=== PATIENT | female | born 1995 | race Caucasian/White ===

== ENCOUNTER 2016-11-21 21:18 | Emergency (ER) | payer OTHER ==
[~2016-11-21 21:18] MED LIST: PRENCAP17 PO
[2017-02-18] MEDS ORDERED: PERM5CRE TOPICAL (15:02)
== END 2016-11-21 21:41 | disposition left against medical advice (07) ==
LOC: PHED 21:18
DX: O26.893 Other specified pregnancy related conditions, third trimester (principal); R06.02 Shortness of breath; Z53.21 Procedure and treatment not carried out due to patient leaving prior to being seen by health care provider; Z3A.28 28 weeks gestation of pregnancy
CPT/HCPCS: 99281

== ENCOUNTER 2016-11-21 22:03 | Emergency (ER) | payer OTHER ==
[~2016-11-21] VITALS: Ht 167.6 cm; Wt 69.4 kg
--- NOTE | 2016-11-21 23:10 | PD ---
HPI Travel History International Travel<30 Days: No Contact w/Intl Traveler<30Days: No Known Affected Area: No History of Present Illness HPI This patient is a 21-year-old 1. 0 EDC is February 11, 2017 presently at 28 weeks and 2 days she presents with the chief complaint of the onset of a vaginal discharge which was then denies any odors or itching she did have to put on a pad for the discharge but it wasn't so it was just smeared with a dark yellowish discharge and no bleeding no rupture of membranes associated with lower abdominal pain described as crampy and intermittent also low back pain No fever or chills she feels hot mild nausea no vomiting positive constipation she has increased frequency urgency pressure with urination no blood in the urine and no pain with urination again denies vaginal bleeding or rupture of membranes and the baby is active [facility] course is significant for an abnormal Pap smear high-grade ANNI and HPV Positive Chlamydia which was treated partner also treated she said that she had a test for cure which was negative colposcopy also done in September had a low- lying placenta which has since been resolved also the baby has bilateral renal pelvic dilatation and the test for cure was negative baseline blood pressure of 100/59 History Past Medical History Narrative Medical No known drug allergies history of psoriasis Obstetric History Obstetric History First Past Surgical History Narrative Surgical Tonsils as a child Family History Narrative Family History Hypertension cancer Social History Alcohol Use: No Tobacco Use: Yes (smokes less than a pack of cigarettes per day) Substance Abuse: No Allergies-Medications (Allergen,Severity, Reaction): Coded Allergies: No Known Allergies (Verified , 11/19/16) Home Meds Active Scripts Without A W/ Fe Carbo (Prenate Mini 29-0.6-0.4-350 mg)1 Cap Cap1 Tab PO DAILY #30 BOTTLE Ref 11 Prov:Heaven Marte 08/06/16 Review of Systems General / Constitutional: No: Fever, Weight Gain, Weight Loss, Chills, Other Eyes: No: Diploplia, Blurred Vision, Visual changes, Pain, Photophobia, Other HENT: No: Headaches, Vertigo, Dental Difficulties, Lightheadedness, Other Cardiovascular: No: Irregular Rhythm, Chest Pain or Discomfort, Palpitations, Tachycardia, Syncope, Varicosities, Edema, Cyanosis, Other Respiratory: No: Cough, Short of Breath, Wheezing, Other Gastrointestinal: Nausea, Abdominal Pain, Constipation Genitourinary: Discharge Musculoskeletal: No: Limited ROM, Weakness, Cramping, Edema, Pain, Other Skin: No Rash, No Itching, No Dryness, No Lumps, No Change in Pigmentation, No Change in Nails, No Alopecia, No Lesions, No Breast Lumps, No Breast Tenderness , No Breast Swelling, No Other Neurologic: No: Weakness, Dizziness, Syncope, Focal Abnormalities, Coordination Problem, Headache, Slurred Speech, Seizures, Other Physical Exam Narrative GENERAL: Well-nourished, well-developed patient. Patient is alert oriented 3 and cooperative in no acute distress SKIN: Warm and dry. HEAD: Normocephalic and atraumatic. EYES: No scleral icterus. No injection or drainage. Conjunctiva are pink sclerae are clear ENT: No nasal drainage noted. Mucous membranes pink. Airway patent. Mucous membranes are moist NECK: Supple, trachea midline. No JVD. CARDIOVASCULAR: Regular rate and rhythm without murmurs, gallops, or rubs. RESPIRATORY: Breath sounds equal bilaterally. No accessory muscle use. ABDOMEN/GI: Abdomen is gravid consistent with stated gestational age no palpable contractions no epigastric or right upper quadrant tenderness no rebound tenderness she feels pressure when pushing on the fundus she feels it in the suprapubic area no point tenderness Gravid to [-] weeks size 28 weeks Fundal Height: [-] GENITOURINARY: Speculum was done prior to the bimanual she has a yellowish green copious frothy discharge in the vagina consistent with either Trichomonas or bacterial vaginosis the cervix is grossly closed no blood in the vault no fluid none on Valsalva External Genitalia: intact and normal in appearance BUS glands: [-] Cervix: [-] Posterior firm measures approximately 3.4 cm on ultrasound Dilatation: [-] Closed Effacement: [-] 0 Station: [-] High Presentation: [-] Breech Membranes: [intact FHT's: Category: [-] 1 Baseline: [-] 140 Reactive: [-]+ Variability: [-] Moderate Decels: [-] 0 EXTREMITIES: No cyanosis or edema. 2+ reflexes BACK: Nontender without obvious deformity. No CVA tenderness. NEUROLOGICAL: Awake and alert. Motor and sensory grossly within normal limits. Five out of 5 muscle strength in all muscle groups. Normal speech. Data Data Vital Signs Reviewed: Yes (temperature is 98.0 blood pressures 115/69 her pulse is 89) [facility] Medical Record Reviewed: Yes Interpretation(s) 21-year-old 1 para 0 at 28 weeks and 2 days Not in labor Lower abdominal pain rule out UTI Vaginal discharge rule out vaginitis Rule out GC Chlamydia reoccurrence Breech on ultrasound Smoker Category 1 tracing Narrative Course / MDM Bedside ultrasound is done breech presentation the BPD is 7.35 equaling 29 weeks and 3 days Placenta is anterior grade 2 no previa no abruption no funneling at the internal os Largest pocket is 5.92 x 5.51 total amniotic fluid index is 19.37 Positive flexion positive tone Positive sustained breathing Baseline heart rate is about 140 Cervical length is 3.35 Femur length is 4.93 equaling 30 weeks and 1 day Essentially a 10 out of 10 biophysical profile Urinalysis culture is indicated, wet prep is consistent with Trichomonas, GC chlamydia are pending, As the patient continues to have discomfort we'll start an IV normal saline she has no known drug allergies we'll treat with Rocephin 1 g IV.and will treat the trichomonas with the 2 gram single dose Plan External monitoring By mouth fluid hydration Urinalysis to rule out UTI Wet prep to evaluate for yeast Trichomonas or BV GC Chlamydia on the urinalysis PCR to rule out recurrence of the Chlamydia Reevaluation after results Diagnosis Diagnosis: Primary Impression: 28 weeks gestation of Additional Impressions: Urinary tract infection Trichomonas vaginitis Disposition: DISCHARGE HOME Condition: Stable Shantelle Erwin MD Nov 21, 2016 23:10
[2016-11-21 23:15] LABS: BACTERIA, URINE RARE /hpf; BLOOD, URINE NEG (NEG); COMMENT (UR) CULTURE INDICATED; CULTURE IF INDICATED CULTURE INDICATED; GLUCOSE,URINE NEG (NEG); KETONE, URINE NEG (NEG); NITRITE,URINE NEG (NEG); PH, URINE 7.5 (5.0-8.5); SQUAMOUS EPITHELIAL CELL URINE 1 /hpf (0-5); URINE COLOR LIGHT-YELLOW (YELLW/STRAW)
[2016-11-21 23:39] LABS: AMPHETAMINE, URINE NEG (NEG); BARBITURATES, URINE NEG (NEG); COCAINE, URINE NEG (NEG)
[2016-11-21] MEDS ORDERED: SODIUM CHLOR 0.9% 1000 ML INJ 1,000 ML IV SCH (23:48)
[2016-11-22] MEDS ORDERED: metroNIDAZOLE 500 MG TAB PO ONE
[2016-11-22] MEDS ORDERED: cefTRIAXone INJ 1,000 MG in SODIUM CHLORIDE 0.9% INJ 100 ML IV ONE (01:00)
[2016-11-22 04:33] LABS: CHLAMYDIA PCR NOT DETECTED (NOT DETECT); NEISSERIA PCR NOT DETECTED (NOT DETECT)
[2016-11-27 13:37] LABS: PHENCYCLIDINE URINE NEG (NEG)
[2016-11-27 13:38] LABS: ECSTASY (MDMA) UR NEG (NEG); HEROIN (6-ACETYLMORPHINE) UR NEG (NEG); K2 SPICE UR NEG (NEG); OBMETHADONE UR NEG (NEG)
[2016-11-27 13:39] LABS: BATH SALTS (MDPV) UR NEG (NEG); OXYCODONE (PERCODAN) NEG (NEG)
[2017-02-18] MEDS ORDERED: PERM5CRE TOPICAL (15:02)
== END 2016-11-22 01:17 | disposition home or self-care (01) ==
LOC: HOBED 22:03
DX: O23.43 Unspecified infection of urinary tract in pregnancy, third trimester (principal); O26.893 Other specified pregnancy related conditions, third trimester; N89.8 Other specified noninflammatory disorders of vagina; R11.0 Nausea; M54.5 Low back pain; K59.00 Constipation, unspecified; F17.200 Nicotine dependence, unspecified, uncomplicated; Z3A.28 28 weeks gestation of pregnancy
CPT/HCPCS: 76815; 80307; 81001; 87086; 87210; 87491; 87591; 96365; 99284; G0481; J0696; J7030

== ENCOUNTER 2017-01-28 02:11 | Emergency (ER) | payer OTHER ==
--- NOTE | 2017-01-28 02:44 | PD ---
HPI Chief Complaint contractions, back pain Date Seen: January 28, 2017 Time Seen: 02:30 Travel History International Travel<30 Days: No Contact w/Intl Traveler<30Days: No Known Affected Area: No History of Present Illness HPI Pt is a 21 y/o G1 with IUP at 38.0 wks who presents with c/o contractions. felt some earlier tonight, then woke up around 1:30 with painful contractions. PT reports feeling contractions in lower back. denies vb. denies LOF. +FM Para: 0 : 1 History Past Medical History Narrative Medical psoriasis Past Surgical History Narrative Surgical tonsillectomy Social History Alcohol Use: No Tobacco Use: Yes (1 cigarette/day) Substance Abuse: No Allergies-Medications (Allergen,Severity, Reaction): Coded Allergies: No Known Allergies (Verified , 01/27/17) Home Meds Active Scripts Without A W/ Fe Carbo (Prenate Mini 29-0.6-0.4-350 mg)1 Cap Cap1 Tab PO DAILY #30 BOTTLE Ref 11 Prov:Heaven Marte 08/06/16 Review of Systems General / Constitutional: No: Fever, Weight Gain, Weight Loss, Chills, Other Eyes: No: Diploplia, Blurred Vision, Visual changes, Pain, Photophobia, Other HENT: No: Headaches, Vertigo, Dental Difficulties, Lightheadedness, Other Cardiovascular: No: Irregular Rhythm, Chest Pain or Discomfort, Palpitations, Tachycardia, Syncope, Varicosities, Edema, Cyanosis, Other Respiratory: No: Cough, Short of Breath, Wheezing, Other Gastrointestinal: Abdominal Pain, No: Nausea, Vomiting, Diarrhea, Hematemesis , Hematochezia, Constipation, Changes in Bowel Habits, Indigestion, Loss of Appetite, Other Genitourinary: Pelvic Pain Musculoskeletal: No: Limited ROM, Weakness, Cramping, Edema, Pain, Other Skin: No Rash, No Itching, No Dryness, No Lumps, No Change in Pigmentation, No Change in Nails, No Alopecia, No Lesions, No Breast Lumps, No Breast Tenderness , No Breast Swelling, No Other Neurologic: No: Weakness, Dizziness, Syncope, Focal Abnormalities, Coordination Problem, Headache, Slurred Speech, Seizures, Other Psychiatric: No: Anxiety, Depression, Suicidal Ideations, Disorder of Thought, Mood Disorder, Substance Abuse, Homicidal Ideation, Other Endocrine: No: Heat Intolerance, Cold Intolerance, Polydipsia, Polyuria, Other Hematologic/Lymphatic: No Easy Bruising, No Lymph Node Enlargement, No Other Physical Exam 117/63, 86, 18, 98.5 Narrative GENERAL: Well-nourished, well-developed patient. SKIN: Warm and dry. HEAD: Normocephalic and atraumatic. EYES: No scleral icterus. No injection or drainage. ENT: No nasal drainage noted. Mucous membranes pink. Airway patent. NECK: Supple, trachea midline. No JVD. CARDIOVASCULAR: Regular rate and rhythm without murmurs, gallops, or rubs. RESPIRATORY: Breath sounds equal bilaterally. No accessory muscle use. BREASTS: Bilateral exam showed no masses , no retractions, no nipple discharge. ABDOMEN/GI: Abdomen soft, non-tender, bowel sounds present, no rebound, no guarding Gravid to GENITOURINARY: External Genitalia: intact and normal in appearance cervix by rn exam , [facility] Membranes: intact Uterine Contractions: not tracing well FHT's: Category: [1 Baseline: [150s] Reactive: [yes] Variability: [mod-] Decels: [no] EXTREMITIES: No cyanosis or edema. BACK: Nontender without obvious deformity. No CVA tenderness. NEUROLOGICAL: Awake and alert. Motor and sensory grossly within normal limits. Five out of 5 muscle strength in all muscle groups. Normal speech. Data Data Vital Signs Reviewed: Yes MDM Medical Record Reviewed: Yes Narrative Course / MDM 21 y/o G1 with IUP at 38 wks with c/o contractions, for labor check --recheck cervix in 1-2 hours No cervical change. pt requests medication for rest. medicated with 10 mg ambien. return to [facility] for worsening symptoms. Diagnosis Diagnosis: Primary Impression: 38 weeks gestation of Additional Impression: Irregular uterine contractions Disposition: DISCHARGE HOME Condition: Stable Wendi Pulido MD January 28, 2017 02:44
[2017-01-28 03:28] VITALS: RESP 18
[2017-01-28] MEDS ORDERED: ZOLPIDEM TARTRATE 10 MG TAB PO ONE (04:15)
[2017-02-18] MEDS ORDERED: PERM5CRE TOPICAL (15:02)
== END 2017-01-28 03:57 | disposition home or self-care (01) ==
LOC: HOBED 02:11
DX: O47.1 False labor at or after 37 completed weeks of gestation (principal); Z3A.38 38 weeks gestation of pregnancy
CPT/HCPCS: 99284

== ENCOUNTER 2017-02-03 13:48 | Emergency (ER) | payer OTHER ==
--- NOTE | 2017-02-03 15:04 | PD ---
HPI Chief Complaint Contractions Date Seen: February 03, 2017 Time Seen: 14:30 Travel History International Travel<30 Days: No Contact w/Intl Traveler<30Days: No Known Affected Area: No History of Present Illness HPI Pt is a 21-year-old G1 at 38/6 weeks gestation based on first trimester ultrasound presenting due to contractions. She reports that she began to experience lower abdominal pain at approximately 8 AM this morning, initially this pain was occurring every 12-15 minutes. Most recently she notes lower abdominal pain every 56 minutes. She denies leakage of fluid, vaginal bleeding. She endorses movement. care has been with [facility], her last appointment was on last Thursday. She denies any complications with this . Para: 0 : 1 History Past Medical History Narrative Medical Abnormal pap smear Pap smear with HGSIL Colposcopy in August significant for low-grade squamous epithelial lesion, JOSEFA-1. Past Surgical History Narrative Surgical Tonsillectomy Family History Narrative Family History Mother: Hx of cervical cancer Social History Alcohol Use: No Tobacco Use: No Substance Abuse: No Allergies-Medications (Allergen,Severity, Reaction): Coded Allergies: No Known Allergies (Verified , 01/27/17) Home Meds Active Scripts Without A W/ Fe Carbo (Prenate Mini 29-0.6-0.4-350 mg)1 Cap Cap1 Tab PO DAILY #30 BOTTLE Ref 11 Prov:Heaven Marte 08/06/16 Review of Systems General / Constitutional: No: Fever, Chills Eyes: No: Visual changes HENT: Headaches (occasional) Cardiovascular: No: Chest Pain or Discomfort Respiratory: No: Short of Breath Gastrointestinal: Abdominal Pain Psychiatric: No: Mood Disorder Physical Exam Narrative GENERAL: Well-nourished, well-developed patient. SKIN: Warm and dry. HEAD: Normocephalic and atraumatic. EYES: No scleral icterus. No injection or drainage. ENT: No nasal drainage noted. Mucous membranes pink. Airway patent. NECK: Supple, trachea midline. No JVD. CARDIOVASCULAR: Regular rate and rhythm without murmurs, gallops, or rubs. RESPIRATORY: Breath sounds equal bilaterally. No accessory muscle use. ABDOMEN/GI: Abdomen soft, non-tender, bowel sounds present, no rebound, no guarding Gravid to 38 weeks size GENITOURINARY: External Genitalia: intact and normal in appearance Cervix: Posterior Dilatation: 1-2cm Effacement: 50% Station: -2 Presentation: Vertex Membranes: Intact Uterine Contractions: Irregular FHT's: Category: 1 Baseline: 145 Reactive: + Variability: Moderate Decels: Absent EXTREMITIES: No cyanosis or edema. BACK: Nontender without obvious deformity. No CVA tenderness. NEUROLOGICAL: Awake and alert. Motor and sensory grossly within normal limits. Five out of 5 muscle strength in all muscle groups. Normal speech. Data Data Vital Signs Reviewed: Yes [facility] Medical Record Reviewed: Yes Interpretation(s) Pt is a 21-year-old G1 at 38/6 weeks gestation based on first trimester ultrasound presenting due to contractions. IUP Category 1 tracing, reassuring External monitoring/toco Initial cervical exam 12 centimeters dilated, 50% effaced, -2 station Will repeat cervical exam in 1-2 hrs to assess cervical change -Cervical exam repeated at 15:45: 3cm/50%/-2 Will recheck cervix in 1hr -Cervical exam preformed at 17:10 Unchanged from prior exam: 3cm/50%/-2 -Pt given Vistaril 75mg po x1 for anxiety GBS+ Will limit cervical exams Pt will require PCN once in active labor Pt instructed to return to OB ED if her water breaks, if contractions occur Q2- 3 minutes or if she experiences vaginal bleeding. jessy Blount Diagnosis Diagnosis: Primary Impression: 38 weeks gestation of Additional Impression: Not in Labor Disposition: 01 DISCHARGE HOME Condition: Stable Susan Erickson MD R2 February 03, 2017 15:04
[2017-02-03 16:30] VITALS: BP 118/74; PULSE 61; RESP 20
[2017-02-03] MEDS ORDERED: hydrOXYzine PAMOATE 25 MG CAP PO ONE (17:30)
[2017-02-18] MEDS ORDERED: PERM5CRE TOPICAL (15:02)
== END 2017-02-03 17:41 | disposition home or self-care (01) ==
LOC: HOBED 13:48
DX: O26.93 Pregnancy related conditions, unspecified, third trimester (principal); R10.30 Lower abdominal pain, unspecified; Z3A.38 38 weeks gestation of pregnancy
CPT/HCPCS: 99284; Q0177

== ENCOUNTER 2017-02-04 00:35 | Inpatient (IN) | payer OTHER ==
[~2017-02-04] VITALS: Ht 167.6 cm; Wt 77.6 kg
[2017-02-04] VITALS (73 sets, daily range): BP systolic 91–136; BP diastolic 42–94; PULSE 52–114; RESP 16–18; TEMP 97.6–98.9
[2017-02-04] MEDS ORDERED: LACTATED RINGER'S 1000 ML INJ 1,000 ML IV PRN (01:22)
[2017-02-04] MEDS ORDERED: LACTATED RINGER'S 1000 ML INJ 1,000 ML IV SCH (01:22)
--- NOTE | 2017-02-04 01:27 | HHI.HP ---
History & Physical H&P HPI Chief Complaint Contractions with vaginal bleeding Date Seen: February 04, 2017 Time Seen: 01:17 Travel History International Travel<30 Days: No Contact w/Intl Traveler<30Days: No Known Affected Area: No History of Present Illness HPI 21-year-old who is at 39 weeks comes in complaining of contractions associated with small amount of vaginal bleeding. She was seen yesterday afternoon and was 3 cm at the time and eventually sent home for no cervical change. A couple hours ago she noticed an increase the frequency of the contractions associated with some small amount of vaginal bleeding. She has no complications she is GBS positive Para: 0 : 1 History Past Medical History Medical History: Denies Significant Hx Obstetric History Obstetric History Patient had a low-lying placenta earlier in the which resolved, she also had resolution of bilateral renal pelvis dilation GBS positive Past Surgical History Narrative Surgical Tonsillectomy Family History Narrative Family History Mother cervical cancer Social History Alcohol Use: No Tobacco Use: No Substance Abuse: No Allergies-Medications (Allergen,Severity, Reaction): Coded Allergies: No Known Allergies (Verified , 01/27/17) Home Meds Active Scripts Without A W/ Fe Carbo (Prenate Mini 29-0.6-0.4-350 mg)1 Cap Cap1 Tab PO DAILY #30 BOTTLE Ref 11 Prov:Heaven Marte 08/06/16 Review of Systems Except as stated in HPI: all other systems reviewed are Neg Physical Exam Narrative GENERAL: Well-nourished, well-developed patient. SKIN: Warm and dry. HEAD: Normocephalic and atraumatic. EYES: No scleral icterus. No injection or drainage. ENT: No nasal drainage noted. Mucous membranes pink. Airway patent. NECK: Supple, trachea midline. No JVD. CARDIOVASCULAR: Regular rate and rhythm without murmurs, gallops, or rubs. RESPIRATORY: Breath sounds equal bilaterally. No accessory muscle use. BREASTS: Bilateral exam showed no masses , no retractions, no nipple discharge. ABDOMEN/GI: Abdomen soft, non-tender, bowel sounds present, no rebound, no guarding Gravid to [-38] weeks size Fundal Height: [-] GENITOURINARY: External Genitalia: intact and normal in appearance BUS glands: [-Normal] Cervix: [Mid position-] Dilatation: [-4 cm] Effacement: [-80%] Station: [--2] Presentation: [Vertex-] Membranes: [intact ] Uterine Contractions: [-Every 4-5 minutes] FHT's: Category: [1-] Baseline: [-150] Reactive: [Moderate-] Variability: [-Moderate] Decels: [-Absent] EXTREMITIES: No cyanosis or edema. BACK: Nontender without obvious deformity. No CVA tenderness. NEUROLOGICAL: Awake and alert. Motor and sensory grossly within normal limits. Five out of 5 muscle strength in all muscle groups. Normal speech. Data Data Vital Signs Reviewed: Yes MDM Plan 21-year-old who is at 39 weeks in labor GBS positive. Start on penicillin Patient desires epidural Diagnosis Diagnosis: Primary Impression: 39 weeks gestation of Additional Impressions: Irregular uterine contractions Positive GBS test Admit for labor and GBS prophylaxis, patient desire epidural for pain relief Soledad Blount MD February 04, 2017 01:27
[2017-02-04] MEDS ORDERED: MINERAL OIL 10 ML VIAL TOPICAL PRN (01:30)
[2017-02-04] MEDS ORDERED: LIDOCAINE HCL 1% 50 ML VIAL I-DERMAL PRN (01:30)
[2017-02-04] MEDS ORDERED: LIDOCAINE HCL 1% 50 ML VIAL INFIL PRN (01:30)
[2017-02-04] MEDS ORDERED: DO NOT ADMINISTER ANTICOAGULANTS PRN (01:30)
[2017-02-04] MEDS ORDERED: ONDANSETRON HCL 4 MG/2 ML VIAL IV PRN (01:30)
[2017-02-04] MEDS ORDERED: CITRIC ACID-SODIUM CITRATE LIQ 30 ML UDC PO SCH (01:30)
[2017-02-04] MEDS ORDERED: PENICILLIN G POTASSIUM INJ 5,000,000 UNITS in SODIUM CHLORIDE 0.9% INJ 100 ML IV ONE (01:30)
[2017-02-04] MEDS ORDERED: OXYTOCIN 30 UNITS-500ML PREMIX 500 ML IV ONE (01:30)
[2017-02-04] MEDS ORDERED: NO SYSTEM NARCOTICS PRN (01:30)
[2017-02-04] MEDS ORDERED: SODIUM CHLORID 0.9% 500 ML INJ 500 ML IV PRN (01:30)
[2017-02-04 01:37] LABS: AUTOMATED NEUTROPHIL # 12.7 TH/MM3 (1.8-7.7); BASOPHIL % 0.1 % (0.0-2.0); HEMATOCRIT 36.8 % (35.0-46.0); LYMPH % 9.9 % (9.0-44.0); LYMPHOCYTE # 1.4 TH/MM3 (1.0-4.8); MEAN CELL VOLUME 74.2 FL (80.0-100.0); MEAN CORPUSCULAR HEMOGLOBIN 24.4 PG (27.0-34.0); MEAN CORPUSCULAR HGB CONC 32.9 % (32.0-36.0); MONO % 2.8 % (0.0-8.0); NEUT % 87.2 % (16.0-70.0); PLATELET COUNT 241 TH/MM3 (150-450); RED BLOOD COUNT 4.96 MIL/MM3 (4.00-5.30); RED CELL DISTRIBUTION WIDTH 16.9 % (11.6-17.2); WHITE BLOOD COUNT 14.6 TH/MM3 (4.0-11.0)
[2017-02-04] MEDS ORDERED: SODIUM CHLOR 0.9% 1000 ML INJ 1,000 ML IV PRN (01:42)
[2017-02-04 01:47] LABS: HEMO FLAGS AUTO DIFF
[2017-02-04] MEDS ORDERED: fentaNYL 2MCG-BUPIV 0.125% INJ 100 ML ONE (02:00)
[2017-02-04 02:10] LABS: OVALOCYTES 1+ (NORMAL); SCAN/DIFF AUTO DIFF CONFIRMED
[2017-02-04] MEDS ORDERED: ePHEDrine/NS 25 MG/5 ML SYR IV PRN (02:30)
[2017-02-04] MEDS: fentaNYL 2MCG-BUPIV 0.125% 100 ML EPIDURAL SCH ×2 (02:33→08:21)
[2017-02-04] MEDS: PENICILLIN G POTASSIUM INJ 2,500,000 UNITS in SODIUM CHLORIDE 0.9% INJ 100 ML IV SCH ×2 (06:28→10:12)
--- NOTE | 2017-02-04 07:53 | PD.LABORPN ---
Subjective Subjective Pt seen and examined. Sleeping comfortably with boyfriend and Grandmother present at bedside. No acute concerns. Objective Vital Signs Vital Signs Date Time Temp Pulse Resp B/P Pulse Ox O2 Delivery O2 Flow Rate FiO2 02/04/17 07:30 83 117/64 02/04/17 07:15 98.8 02/04/17 07:15 16 02/04/17 07:00 95 109/66 02/04/17 06:35 16 02/04/17 06:30 96/46 02/04/17 06:30 90 02/04/17 06:15 98.9 02/04/17 06:11 18 02/04/17 06:00 97/42 02/04/17 06:00 67 02/04/17 05:30 16 02/04/17 05:15 68 110/49 02/04/17 05:00 80 16 110/53 02/04/17 04:45 113/54 02/04/17 04:45 71 02/04/17 04:30 16 02/04/17 04:30 73 02/04/17 04:30 115/52 02/04/17 04:15 68 02/04/17 04:15 109/52 02/04/17 04:00 98.4 16 02/04/17 04:00 64 02/04/17 04:00 111/59 02/04/17 03:45 111/51 02/04/17 03:45 65 02/04/17 03:30 63 02/04/17 03:30 18 02/04/17 03:30 112/53 02/04/17 03:15 67 106/55 02/04/17 03:00 62 110/53 02/04/17 02:45 59 114/61 02/04/17 02:33 18 02/04/17 02:30 56 113/63 02/04/17 02:27 56 110/71 02/04/17 02:24 107/55 02/04/17 02:21 111/59 02/04/17 02:20 64 02/04/17 02:18 112/58 02/04/17 02:17 18 02/04/17 02:15 58 02/04/17 02:15 114/64 02/04/17 02:13 18 02/04/17 02:12 66 125/76 Objective Pelvic Exam: Cervix: midposition, soft Dilatation: 5-6 Effacement: 90% Station: -2 Presentation: Vertex Membranes: Intact Uterine Contractions: Q3-4 minutes FHT's: Category: 1 Baseline: 150s Reactive: + Variability: Moderate Decels: Absent Pt had a deceleration that responded to repositioning Assessment/Plan Assessment and Plan 21 at 39 weeks based on first trimester ultrasound, in active labor. Category 1 tracing, reassuring Prior deceleration x1 that responded well to repositioning Pain currently well controlled with epidural Pitocin currently at a rate of 12, to increase at rate of 1130 Anticipate vaginal delivery wdw Susan Arizmendi MD R2 February 04, 2017 07:53
[2017-02-04] MEDS ORDERED: OXYTOCIN 30 UNITS-500ML PREMIX 500 ML IV SCH (08:00)
--- NOTE | 2017-02-04 09:34 | PD.LABORPN ---
Subjective Subjective Per nurse report, the patient had rupture membranes are with last cervical check , which was 7-8 cm dilated, 90% effaced. Discussed plan to insert scalp monitor. Patient expressed understanding and consent. Objective Vital Signs Vital Signs Date Time Temp Pulse Resp B/P Pulse Ox O2 Delivery O2 Flow Rate FiO2 02/04/17 09:00 64 02/04/17 09:00 60 106/83 02/04/17 08:55 71 02/04/17 08:50 86 02/04/17 08:45 93 111/57 02/04/17 08:35 88 02/04/17 08:30 104 02/04/17 08:30 85 107/57 02/04/17 08:21 16 02/04/17 08:15 80 02/04/17 08:10 84 02/04/17 08:05 83 02/04/17 08:00 84 91/49 02/04/17 08:00 102 02/04/17 07:55 82 02/04/17 07:50 81 02/04/17 07:45 88 02/04/17 07:30 83 117/64 02/04/17 07:15 98.8 02/04/17 07:15 16 02/04/17 07:00 95 109/66 02/04/17 06:35 16 02/04/17 06:30 96/46 02/04/17 06:30 90 02/04/17 06:15 98.9 02/04/17 06:11 18 02/04/17 06:00 97/42 02/04/17 06:00 67 02/04/17 05:30 16 02/04/17 05:15 68 110/49 02/04/17 05:00 80 16 110/53 02/04/17 04:45 113/54 02/04/17 04:45 71 02/04/17 04:30 16 02/04/17 04:30 73 02/04/17 04:30 115/52 02/04/17 04:15 68 02/04/17 04:15 109/52 02/04/17 04:00 98.4 16 02/04/17 04:00 64 02/04/17 04:00 111/59 02/04/17 03:45 111/51 02/04/17 03:45 65 02/04/17 03:30 63 02/04/17 03:30 18 02/04/17 03:30 112/53 02/04/17 03:15 67 106/55 02/04/17 03:00 62 110/53 02/04/17 02:45 59 114/61 02/04/17 02:33 18 02/04/17 02:30 56 113/63 02/04/17 02:27 56 110/71 02/04/17 02:24 107/55 02/04/17 02:21 111/59 02/04/17 02:20 64 02/04/17 02:18 112/58 02/04/17 02:17 18 02/04/17 02:15 58 02/04/17 02:15 114/64 02/04/17 02:13 18 02/04/17 02:12 66 125/76 Objective Pelvic Exam: Cervix: soft Dilatation: 8cm Effacement: 90% Station: -1 Presentation: Vertex Membranes: Ruptured Uterine Contractions: Every 2-5 minutes FHT's: heart tracing was showing high variability with some late and variable decelerations, but then scalp monitor was placed. Tracing improved from category 2 to category 1. Category: Category 1 Baseline: 150 Reactive: Reactive Variability: Moderate variability Decels: No decelerations noted Assessment/Plan Problem List: (1) Positive GBS test (2) Antepartum variable deceleration (3) Late deceleration of heart rate (4) 39 weeks gestation of (5) Labor and delivery, indication for care Assessment and Plan 21yo at 39 weeks based on first trimester ultrasound, in active labor. Currently 8 cm dilated, 90% effaced, -1 station. Category 1 tracing, reassuring Prior deceleration x1 that responded well to repositioning. heart tracing was showing high variability with some late and variable decelerations, but then scalp monitor was placed after discussion with patient. Tracing improved from category 2 to category 1. Pain currently well controlled with epidural Pitocin currently running, to increase at rate of 1130 Anticipate vaginal delivery Patient has received penicillin 2. jessy Bledsoe,Marcio Case MD R1 February 04, 2017 09:34
--- NOTE | 2017-02-04 11:04 | PD.LABORPN ---
Subjective Subjective Patient is comfortable at this time with MARGE. Family in room with her, sitting up in bed resting. Denies vaginal or rectal pressure. Objective Vital Signs Vital Signs Date Time Temp Pulse Resp B/P Pulse Ox O2 Delivery O2 Flow Rate FiO2 02/04/17 10:31 62 113/68 02/04/17 09:30 98.7 18 Objective Pelvic Exam: Last exam FSE placed by Dr. Blount, 8/90/-2, clear fluid FHT's: baseline 125, +accelerations to 165, moderate to sometime marked variability. No decelerations at this time. Pitocin @ 6mu/min UC q 2-3 min Assessment/Plan Problem List: (1) 39 weeks gestation of (2) Positive GBS test (3) Labor and delivery, indication for care Assessment and Plan 39 weeks Presented in early active labor Pitocin augmented FSE MARGE GBS Positive - has received serial doses of Lu Patient nor family have any questions at this time. continue current management Barb Oneil MD February 04, 2017 11:04
[2017-02-04 11:40] LABS: BLOOD GAS BASE EXCESS -3.3 mmol/L (-2-2); BLOOD GAS O2 HGB SATURATION 42 % (90-100); CORD BLOOD GAS HCO3 22 mmol/L (21-29); CORD BLOOD GAS PCO2 45 mmHG (34-78); CORD BLOOD GAS PH 7.31 (7.14-7.42)
[2017-02-04 11:41] LABS: CORD BLOOD GAS PO2 21 mmHG (3.0-40.0); DRAW SITE CORD BLOOD; STAT NO
[2017-02-04] MEDS ORDERED: ZOLPIDEM TARTRATE 5 MG TAB PO PRN (12:00)
[2017-02-04] MEDS ORDERED: ALUMINUM/MAGNESIUM/SIMETH 30 ML CUP PO PRN (12:00)
[2017-02-04] MEDS ORDERED: oxyCODONE/ACETAMINOPHEN 5 MG/325 MG TAB PO PRN (12:00)
[2017-02-04] MEDS ORDERED: WITCH HAZEL 50%/GLYCERIN 12.5% 40 PAD JAR TOPICAL PRN (12:00)
[2017-02-04] MEDS ORDERED: ONDANSETRON ODT 4 MG TAB PO PRN (12:00)
[2017-02-04] MEDS ORDERED: BENZOCAINE 20% TOPICAL SPRAY 60 ML CAN TOPICAL PRN (12:00)
[2017-02-04] MEDS ORDERED: ACETAMINOPHEN 325 MG TAB PO PRN (12:00)
[2017-02-04] MEDS ORDERED: SODIUM CHLORIDE 0.9% FLUSH 10 ML FLUSH IV FLUSH PRN (12:00)
[2017-02-04] MEDS: IBUPROFEN 600 MG TAB PO PRN ×2 (12:14→20:25)
--- NOTE | 2017-02-04 12:21 | PD.OB.DELI ---
Delivery Date: February 04, 2017 Anesthesia: Epidural Episiotomy: None Vaginal Delivery: Normal Presentation: Occiput anterior Nuchal Cord: None Delayed cord clamping (45 sec): No : Female One Minute : 9 Five Minute : 9 Weight: 3460g Placenta: Spontaneous delivery, Intact, 3 vessel cord, Cord pH Laceration: Vaginal laceration (right labial laceration), 1 deg Repair: Chromic running (3-0 chromic running repair of right labial laceration) Additional Information Supervised by Dr. Oneil. (Marcio Bledsoe MD R1) Additional Information 21 yo G1 presented in early active labor. SROM with clear fluid. MARGE for anesthesia. FSE placed for monitoring. in OA. Placenta spontaneous, intact and grossly normal. EBL 200ml. First degree laceration on inner right labia repaired. (Barb Oneil MD) Marcio Bledsoe MD R1 February 04, 2017 11:53 Barb Oneil MD February 04, 2017 14:01
[2017-02-04] MEDS: oxyCODONE/ACETAMINOPHEN 5 MG/325 MG TAB PO PRN ×2 (13:31→20:25)
[2017-02-04] MEDS ORDERED: DIPHTH/TETANUS/ACEL PERTUSSIS (BOOSTER) 0.5 ML VIAL/PFS IM ONE (16:00)
[2017-02-04] MEDS ORDERED: MEASLES, MUMPS, RUBELLA VACCINE 0.5 ML VIAL SQ ONE (16:00)
[2017-02-04] MEDS: DOCUSATE SODIUM 50 MG/SENNA 8.6 MG TAB PO PRN (20:25)
[2017-02-04] MEDS ORDERED: SODIUM CHLORIDE 0.9% FLUSH 10 ML FLUSH IV FLUSH SCH (21:00)
[2017-02-05] MEDS: IBUPROFEN 600 MG TAB PO PRN ×3 (04:29→17:44)
[2017-02-05] MEDS: oxyCODONE/ACETAMINOPHEN 5 MG/325 MG TAB PO PRN ×5 (04:29→21:50)
[2017-02-05 06:00] VITALS: BP 105/62; PULSE 83; RESP 20; TEMP 98
[2017-02-05] MEDS ORDERED: LACTATED RINGER'S 1000 ML INJ 1,000 ML IV SCH (06:16)
[2017-02-05] MEDS ORDERED: MISOPROSTOL 200 MCG TAB PR ONE (06:30)
[2017-02-05 06:45] VITALS: BP 106/66; PULSE 70; RESP 17; RESP 19
--- NOTE | 2017-02-05 06:45 | HHI.OB ---
Subjective Post Day: 1 Remarks Patient reports doing well last evening and overnight. This morning she has been several times and notes some increased bleeding. Objective Vitals/I&O Vital Signs Date Time Temp Pulse Resp B/P Pulse Ox O2 Delivery O2 Flow Rate FiO2 02/04/17 20:48 97.6 18 02/04/17 20:48 6:15 65 119/72 Objective Remarks Call this am from RN that patient was having increased bleeding about a 1/2 of small white pad, then most of an orange pad. Her fundal height was just under the UMB. She was instructed to void and get a set of vitals. Her VSS per RN. She voided and still had a small trickle of bleeding per RN. GENERAL: Well-nourished, well-developed patient. NAD CARDIOVASCULAR: VSS, afebrile RESPIRATORY: No accessory muscle use. GENITOURINARY: Scant on orange pad at time of exam ABDOMEN/GI: Abdomen soft, non-tender. Fundus: Firm, non-tender at U-1 Fundal massage and 100ml old dark clot was expressed, U-3 now EXTREMITIES: No cyanosis or edema Medications and IVs Vital Signs (Adult) Q5MX6 (02/05/17 06:16) Activity Bed Rest (02/05/17 06:16) Complete Blood Count With Diff (02/05/17 06:16) Lactated Ringer's 1000 Ml Inj (Lr 1000 M (02/05/17 06:16) Misoprostol (Cytotec) (02/05/17 06:30) Assessment/Plan Problem List: (1) 39 weeks gestation of Assessment and Plan PPD #1 s/p uncomplicated Uterine clot expressed with fundal massage, EBL about 200ml over past 3 hours No excessive bleeding at this time, but will give 400mcg cytotec, get a set of labs and give a small bolus for hydration. RN will re-assess. VSS. Reviewed with patient precautions to watch for symptoms, expect increased bleeding with BF, regular void and ambulation Barb Oneil MD February 05, 2017 06:45
[2017-02-05 06:50] VITALS: BP 101/61; PULSE 67; RESP 24; TEMP 97.7
[2017-02-05 07:01] LABS: AUTOMATED NEUTROPHIL # 8.4 TH/MM3 (1.8-7.7); BASOPHIL % 0.3 % (0.0-2.0); EOSINOPHIL % 0.3 % (0.0-4.0); HEMATOCRIT 28.8 % (35.0-46.0); LYMPH % 23.3 % (9.0-44.0); LYMPHOCYTE # 2.8 TH/MM3 (1.0-4.8); MEAN CELL VOLUME 74.2 FL (80.0-100.0); MEAN CORPUSCULAR HEMOGLOBIN 24.9 PG (27.0-34.0); MEAN CORPUSCULAR HGB CONC 33.5 % (32.0-36.0); MONO % 6.3 % (0.0-8.0); NEUT % 69.8 % (16.0-70.0); PLATELET COUNT 200 TH/MM3 (150-450); RED BLOOD COUNT 3.88 MIL/MM3 (4.00-5.30); RED CELL DISTRIBUTION WIDTH 16.8 % (11.6-17.2); WHITE BLOOD COUNT 12.1 TH/MM3 (4.0-11.0)
[2017-02-05 07:05] LABS: HEMO FLAGS AUTO DIFF
[2017-02-05 07:45] LABS: SCAN/DIFF AUTO DIFF CONFIRMED
[2017-02-05] MEDS ORDERED: METHYLERGONOVINE MALEATE 0.2 MG/ML VIAL IM ONE ×2 (08:00→08:30)
[2017-02-05 09:49] VITALS: TEMP 99.1
[2017-02-05] MEDS ORDERED: medroxyPROGESTERone ACETATE SUSP 150 MG/ML SYRINGE IM ONE (10:00)
[2017-02-05] MEDS: DOCUSATE SODIUM 50 MG/SENNA 8.6 MG TAB PO PRN (10:44)
[2017-02-05] MEDS: METHYLERGONOVINE MALEATE 0.2 MG TAB PO SCH ×2 (13:16→18:52)
--- NOTE | 2017-02-05 14:19 | HHI.PR ---
Addendum to Inpatient Note Addendum Reason: Additional Documentation Additional Information S: Went to re-evaluate pt this afternoon. Pt and nurse both report significant improvement in her vaginal bleeding. Per patient, she has soaked through less than a quarter of a pad over the course of 2.5 hours. She may have passed one clot. She reports that she is able to go to the bathroom without symptoms and does not notice significant bleeding. Patient denies any headache, chest pain, shortness of breath, lightheadedness, dizziness, fever, lightheadedness or presyncope with standing. She reports feeling energetic. Per nurse report, patient received her doses of Methergine IM, then after 30-45 minutes, walk patient to the bathroom and noted small/scant/minimal bleeding. She did the same thing after the by mouth dose of Methergine, and again only observed small/ skin/minimal bleeding. O: Vitals: Afebrile and vital signs stable and within normal limits Gen.: female patient in no acute distress, appears much more comfortable and happy as compared to this morning's exam. Abdomen: Patient with firm uterine fundus palpated below the level of the umbilicus. : Minimal bleeding with palpation of uterine fundus A/P: Patient is a 21-year-old at 39 weeks and 0 days PPD #1 s/p uncomplicated . Patient had increased vaginal bleeding overnight and is status post Cytotec 400 g, Methergine IM 2, by mouth 1, small fluid bolus; hemoglobin trended down from 12.1 to 9.6. Patient denies symptoms of anemia. Minimal bleeding expressed with fundal massage, EBL significantly less over past 3 hours, small/scant/minimal bleeding reported by patient, nurse, and observed by physical exam Continue 24-hour course of Methergine Consider repeat CBC if increased vaginal bleeding or abnormal vital signs. Marcio Bledsoe MD R1 February 05, 2017 14:18
[2017-02-06] MEDS: METHYLERGONOVINE MALEATE 0.2 MG TAB PO SCH ×2 (00:16→06:07)
[2017-02-06] MEDS: IBUPROFEN 600 MG TAB PO PRN ×2 (00:16→06:08)
[2017-02-06] MEDS: oxyCODONE/ACETAMINOPHEN 5 MG/325 MG TAB PO PRN ×2 (02:56→09:50)
[2017-02-06] MEDS: DOCUSATE SODIUM 50 MG/SENNA 8.6 MG TAB PO PRN (02:57)
[2017-02-06 07:08] VITALS: RESP 18
[2017-02-06] MEDS ORDERED: ACET325T PO (08:25)
[2017-02-06] MEDS ORDERED: IBUP-232 PO (08:25)
--- NOTE | 2017-02-06 08:29 | HHI.DCPOC ---
Discharge Care Plan Diagnosis: (1) Normal vaginal delivery Report Symptoms to Your Doctor -Temperate above 100.5 degrees -Redness, of incision or excessive or foul smelling drainage -Unusual pain or calf pain -Increased vaginal bleeding -Painful or difficulty urinating -Feelings of extreme sadness or anxiety after 2 weeks Goals to Promote Your Health * To prevent worsening of your condition and complications, please follow up with doctors as instructed. * To maintain your health at the optimal level, please stay well hydrated, eat a well balanced diet, and exercise regularly. Directions to Meet Your Goals Take your medications as prescribed Follow your dietary instruction Follow activity as directed Ensure plenty of rest for recovery Drink fluids for hydration Keep your appointments as scheduled Take your immunizations and boosters as scheduled If your symptoms worsen call your PCP, if no PCP go to Urgent Care Center or Emergency Room Smoking is Dangerous to Your Health. Avoid second hand smoke Call the 24-hour crisis hotline for domestic abuse at Marcio Bledsoe MD R1 February 06, 2017 08:28 Yulisa Baron MD February 06, 2017 09:36
--- NOTE | 2017-02-06 08:33 | HHI.OB ---
Subjective Post Day: 2 Remarks Pt seen and examined this morning. day # 2 AFVSS overnight. Decreased lochia. She endorses minimal spotting. No significant bleeding overnight. Denies dysuria. No breast tenderness. She is feeding the baby via breast. Appetite good. Minimal nausea, no vomiting. Has had BM. + flatus. Ambulating well. Denies calf pain or shortness of breath. Otherwise, she is doing well this morning and has no other concerns. (Susan Erickson MD R2) Objective Vitals/I&O Vital Signs Date Time Temp Pulse Resp B/P Pulse Ox O2 Delivery O2 Flow Rate FiO2 02/06/17 07:08 18 02/06/17 03:56 18 02/05/17 09:49 99.1 Objective Remarks GENERAL: Well-nourished, well-developed patient. NAD CARDIOVASCULAR: VSS, afebrile RESPIRATORY: No accessory muscle use. GENITOURINARY: Scant on orange pad at time of exam ABDOMEN/GI: Abdomen soft, non-tender. Fundus: Firm, non-tender below umbilicus No bleeding with fundal massage EXTREMITIES: No cyanosis or edema Medications and IVs Current Medications Medications (Trade) Dose Ordered Sig/Asif Route Start Time Stop Time Status Last Admin (Pitocin 30 Units-NS 500 ml Premix) 500 ml @ 0 mls/hr TITRATE IV 02/04/17 08:00 02/04/17 08:15 (NS Flush) 2 ml BID IV FLUSH 02/04/17 21:00 (NS Flush) 2 ml UNSCH PRN IV FLUSH 02/04/17 12:00 (Tylenol) 650 mg Q4H PRN PO 02/04/17 12:00 (Motrin) 600 mg Q6H PRN PO 02/04/17 12:00 02/06/17 06:08 (Percocet 5-325 Mg) 1 tab Q4H PRN PO 02/04/17 12:00 (Percocet 5-325 Mg) 2 tab Q4H PRN PO 02/04/17 12:00 02/06/17 02:56 (Americaine 20% Top Spr) 1 spray Q4H PRN TOPICAL 02/04/17 12:00 02/04/17 15:54 (Tucks Pads) 1 applic QID PRN TOPICAL 02/04/17 12:00 02/04/17 15:54 (Dee-Colace) 2 tab Q12H PRN PO 02/04/17 12:00 02/06/17 02:57 (Ambien) 5 mg HS PRN PO 02/04/17 12:00 (Mag-Al Plus Susp Liq) 15 ml Q8H PRN PO 02/04/17 12:00 Ondansetron HCl 4 mg 4 mg Q6H PRN PO 02/04/17 12:00 (Lr 1000 ml Inj) 1,000 ml @ 500 mls/hr Q2H IV 02/05/17 06:16 02/05/17 06:33 (Methergine) 0.2 mg Q6HR PO 02/05/17 12:00 02/06/17 11:59 02/06/17 06:07 (Susan Erickson MD R2) Assessment/Plan Problem List: (1) 39 weeks gestation of Assessment and Plan 21 y/o female who is PPD# 2 s/p . -Continue routine care. -Percocet and Motrin PRN pain. -Pt with decreased lochia, she received final dose of Methergine this morning -Encouraged OOB. Advised pelvic rest for 6 wks. -Re: ctrl, she would like Depo and then the Mirena. -Anticipate discharge later today. wdw Dr. Loraine MD (Susan Erickson MD R2) Susan Erickson MD R2 February 06, 2017 08:33 Yulisa Baron MD February 06, 2017 09:37
[2017-02-06 12:17] LABS: HEMATOCRIT 25.5 % (35.0-46.0); REVIEW FLAG FINAL
[2017-02-06] MEDS ORDERED: FERR325T86 PO (13:22)
[2017-02-06] MEDS ORDERED: medroxyPROGESTERone ACETATE SUSP 150 MG/ML SYRINGE IM ONE (13:45)
[2017-02-18] MEDS ORDERED: PERM5CRE TOPICAL (15:02)
== END 2017-02-06 15:49 | disposition home or self-care (01) | DRG 774 ==
LOC: HOBED 00:35 → H2EA 01:30 → H1EA 13:46
PROVIDERS: ADMIT Obstetrics & Gynecology Obstetrics; ATTEND Obstetrics & Gynecology Obstetrics
PROC: 10E0XZZ Delivery of Products of Conception, External Approach (ICD-10-PCS; principal; 2017-02-04)
PROC: 0HQ9XZZ Repair Perineum Skin, External Approach (ICD-10-PCS; 2017-02-04)
PROC: 4A1H7CZ Monitoring of Products of Conception, Cardiac Rate, Via Natural or Artificial Opening (ICD-10-PCS; 2017-02-04)
PROC: 3E0S3CZ (ICD-10-PCS; 2017-02-04)
PROC: 00HU33Z Insertion of Infusion Device into Spinal Canal, Percutaneous Approach (ICD-10-PCS; 2017-02-04)
DX: O99.824 Streptococcus B carrier state complicating childbirth (principal); O72.2 Delayed and secondary postpartum hemorrhage; O76 Abnormality in fetal heart rate and rhythm complicating labor and delivery; O70.0 First degree perineal laceration during delivery; Z37.0 Single live birth; Z3A.39 39 weeks gestation of pregnancy
CPT/HCPCS: 82805; 85014; 85018; 85025; 86900; 86901; 90715; 99284; 99285; J2210; J2540; J2590; J7120; Q0177

== ENCOUNTER 2017-08-27 03:30 | Inpatient (IN) | payer OTHER ==
[~2017-08-27] VITALS: Ht 167.6 cm; Wt 59.2 kg
[~2017-08-27 03:30] MED LIST changes: +FERR325T86 PO; +FLUO20CA12 PO; +PRAM1AER8 TOPICAL; +PRAM1LOT4 TOPICAL; -PRENCAP17 PO
[2017-08-27 03:52] VITALS: BP 100/66; PULSE 99; RESP 16; TEMP 97.9; O2SAT 100
[2017-08-27] MEDS ORDERED: ACETAMINOPHEN 325 MG TAB PO PRN (04:30)
[2017-08-27] MEDS ORDERED: ALUMINUM/MAGNESIUM/SIMETH 30 ML CUP PO PRN (04:30)
[2017-08-27] MEDS ORDERED: diphenhydrAMINE HCL 50 MG CAP - HS PRN PO (04:30)
[2017-08-27] MEDS ORDERED: diphenhydrAMINE HCL 50 MG/ML VIAL - HS PRN IM (04:30)
[2017-08-27] MEDS ORDERED: hydrOXYzine HCL 50 MG TAB PO PRN (04:30)
[2017-08-27] MEDS ORDERED: MAGNESIUM HYDROXIDE SUSP 30 ML CUP PO PRN (04:30)
[2017-08-27] MEDS: NICOTINE 21 MG/24 HR PATCH T-DERMAL SCH (09:00)
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
[2017-08-27] MEDS: SERTRALINE HCL 50 MG TAB PO SCH (13:00)
[2017-08-27] MEDS ORDERED: LOPERAMIDE HCL 2 MG CAP PO PRN (14:45)
[2017-08-27] MEDS ORDERED: cloNIDine HCL 0.1 MG TAB PO PRN (14:45)
[2017-08-27] MEDS ORDERED: ONDANSETRON ODT 4 MG TAB PO PRN (14:45)
[2017-08-27 18:09] VITALS: BP 108/66; PULSE 68; RESP 17; TEMP 97.7; O2SAT 100
[2017-08-27] MEDS ORDERED: REMOVE OLD NICOTINE PATCH T-DERMAL SCH (21:00)
[2017-08-28 06:17] VITALS: BP 102/57; PULSE 66; RESP 16; TEMP 98.3; O2SAT 99
[2017-08-28] MEDS: SERTRALINE HCL 50 MG TAB PO SCH (09:01)
[2017-08-28] MEDS: NICOTINE 21 MG/24 HR PATCH T-DERMAL SCH (09:01)
[2017-08-28 11:01] LABS: AUTOMATED NEUTROPHIL # 2.8 TH/MM3 (1.8-7.7); BASOPHIL % 0.6 % (0.0-2.0); EOSINOPHIL # 0.1 TH/MM3 (0-0.4); EOSINOPHIL % 1.5 % (0.0-4.0); HEMATOCRIT 38.2 % (35.0-46.0); HEMO FLAGS DIFF FINAL; LYMPHOCYTE # 2.8 TH/MM3 (1.0-4.8); MEAN CELL VOLUME 75.1 FL (80.0-100.0); MEAN CORPUSCULAR HEMOGLOBIN 24.2 PG (27.0-34.0); MEAN CORPUSCULAR HGB CONC 32.3 % (32.0-36.0); MONO % 7.9 % (0.0-8.0); PLATELET COUNT 258 TH/MM3 (150-450); RED BLOOD COUNT 5.08 MIL/MM3 (4.00-5.30); RED CELL DISTRIBUTION WIDTH 17.7 % (11.6-17.2); WHITE BLOOD COUNT 6.3 TH/MM3 (4.0-11.0)
[2017-08-28] MEDS ORDERED: ZOLO50TA PO (11:05)
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
--- NOTE | 2017-08-28 11:09 | PD.CONS ---
HPI Service [facility] Hospitalists Consult Requested By Psychiatry Reason for Consult Medical management Primary Care Physician Unknown Diagnoses: History of Present Illness To year-old female with no significant past medical and psychiatric history was transfer from [facility] to [facility] under Snow act for evaluation for possible adjustment disorder and questionable polysubstance abuse. Patient was seen this morning and examined and denies any chest pain, shortness of breath. She also denies any suicidal or homicidal ideations. Vitals remained stable. Review of Systems Except as stated in HPI: all other systems reviewed are Neg Past Family Social History Allergies: Coded Allergies: No Known Allergies (Verified Allergy, Unknown, 08/27/17) Past Medical History No history of diabetes, hypertension or hyperlipidemia Past Surgical History No previous surgery Reported Medications Not currently on any medication Family History Denies any family history of hypertension, hyperlipidemia or diabetes Social History Reports half a pack tobacco use and denies alcohol or illicit drug intake Physical Exam Vital Signs Vital Signs Date Time Temp Pulse Resp B/P (MAP) Pulse Ox O2 Delivery O2 Flow Rate FiO2 08/28/17 06:17 98.3 66 16 102/57 (72) 99 08/27/17 18:09 97.7 68 17 108/66 (80) 100 Physical Exam GENERAL: This is a well-nourished, well-developed patient, in no apparent distress. SKIN: No rashes, ecchymoses or lesions. Cool and dry. HEAD: Atraumatic. Normocephalic. No temporal or scalp tenderness. EYES: Pupils equal round and reactive. Extraocular motions intact. No scleral icterus. No injection or drainage. ENT: Nose without bleeding, purulent drainage or septal hematoma. Throat without erythema, tonsillar hypertrophy or exudate. Uvula midline. Airway patent. NECK: Trachea midline. No JVD or lymphadenopathy. Supple, nontender, no meningeal signs. CARDIOVASCULAR: Regular rate and rhythm without murmurs, gallops, or rubs. RESPIRATORY: Clear to auscultation. Breath sounds equal bilaterally. No wheezes , rales, or rhonchi. GASTROINTESTINAL: Abdomen soft, non-tender, nondistended. No hepato-splenomegaly , or palpable masses. No guarding. MUSCULOSKELETAL: Extremities without clubbing, cyanosis, or edema. No joint tenderness, effusion, or edema noted. No calf tenderness. Negative Homans sign bilaterally. NEUROLOGICAL: Awake and alert. Cranial nerves II through XII intact. Motor and sensory grossly within normal limits. Five out of 5 muscle strength in all muscle groups. Normal speech. Laboratory Laboratory Tests Test 08/28/17 10:01 08/28/17 10:06 White Blood Count 6.3 Red Blood Count 5.08 Hemoglobin 12.3 Hematocrit 38.2 Mean Corpuscular Volume 75.1 Mean Corpuscular Hemoglobin 24.2 Mean Corpuscular Hemoglobin Concent 32.3 Red Cell Distribution Width 17.7 Platelet Count 258 Mean Platelet Volume 8.1 Neutrophils (%) (Auto) 45.0 Lymphocytes (%) (Auto) 45.0 Monocytes (%) (Auto) 7.9 Eosinophils (%) (Auto) 1.5 Basophils (%) (Auto) 0.6 Neutrophils # (Auto) 2.8 Lymphocytes # (Auto) 2.8 Monocytes # (Auto) 0.5 Eosinophils # (Auto) 0.1 Basophils # (Auto) 0.0 CBC Comment DIFF FINAL Differential Comment Result Diagram: 08/28/17 1006 Assessment and Plan Assessment and Plan 22-year-old female with Adjustment disorder Management per psychiatry Continue current Snow act Tobacco abuse Tobacco counseling cessation provided DVT prophylaxis: Ambulatory [facility] will sign off, reconsult when necessary Code Status Full code Discussed Condition With Patient Saman Pérez MD Aug 28, 2017 11:09
[2017-08-28 11:22] LABS: ANION GAP 6 MEQ/L (5-15); AST (GOT) 47 U/L (15-37); BICARBONATE 29.3 MEQ/L (21.0-32.0); BLOOD UREA NITROGEN 9 MG/DL (7-18); CHLORIDE 101 MEQ/L (98-107); GLOMERULAR FILTRATION RATE 110 ML/MIN (>89); POTASSIUM 3.5 MEQ/L (3.5-5.1); SODIUM (NA) 136 MEQ/L (136-145)
[2017-08-28 11:24] LABS: ALT (GPT) 80 U/L (10-53)
[2017-08-28 11:27] LABS: ALKALINE PHOSPHATASE 110 U/L (45-117); FERRITIN 13 NG/ML (8-252); HDL CHOLESTEROL 44.5 MG/DL (40.0-60.0); LDL CHOLESTEROL 60 MG/DL (0-99); TOTAL BILIRUBIN ADULT 0.2 MG/DL (0.2-1.0); TRANSFERRIN IRON PROFILE 337 MG/DL (200-360)
[2017-08-28] MEDS ORDERED: FERR325T86 PO (11:38)
[2017-08-28 13:49] LABS: HEMOGLOBIN A1a 1.7 %; HEMOGLOBIN A1b 0.8 %; HEMOGLOBIN Ao 84.9 %; HEMOGLOBIN F 0.9 %; HEMOGLOBIN LA1C 2.3 %; HEMOGLOBIN P3 3.5 %
== END 2017-08-28 14:10 | disposition home or self-care (01) | DRG 881 ==
LOC: H270 03:45
PROVIDERS: ADMIT Psychiatry & Neurology Psychiatry; ATTEND Psychiatry & Neurology Psychiatry
DX: F43.21 Adjustment disorder with depressed mood (principal); R45.851 Suicidal ideations; F19.20 Other psychoactive substance dependence, uncomplicated; F43.10 Post-traumatic stress disorder, unspecified; D53.9 Nutritional anemia, unspecified; Z72.0 Tobacco use; Z81.8 Family history of other mental and behavioral disorders; Z81.3 Family history of other psychoactive substance abuse and dependence
CPT/HCPCS: 80053; 80061; 82728; 83036; 83540; 83550; 85025